=== PATIENT | male | born 1970 | race Caucasian/White ===

== ENCOUNTER → 2017-12-07 11:56 | Outpatient (CLI) | payer SELFPAY ==
[2017-12-07 12:10] VITALS: BP 134/87; PULSE 76; RESP 16; TEMP 36.9; O2SAT 97; BMI 26.7
--- NOTE | 2017-12-07 12:30 | HTC.HP_ITS ---
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 History of Present Illness: 47y.o.man with known diagnosis of Hemophilia B, comes in for follow up. Feels well, as not used any factor replacement in the last year, has no dental problems. Health History: Past Medical History (Last Reviewed 12/07/17 @ 12:09 by Zoie Mcmanus) Hemophilia B in male (Acute) Past Surgical History (Last Reviewed 12/07/17 @ 12:09 by Zoie Mcmanus) History of knee surgery (Acute) Family History (Last Reviewed 12/07/17 @ 12:09 by Zoie Mcmanus) Father Heart disease Grandmother Diabetes Allergies/Adverse Reactions: Allergy/AdvReac Type Severity Reaction Status Date / Time aspirin AdvReac Severe Other Verified 12/07/17 12:09 Risk Factors Social History Social History: No changes Smoking Status Never smoker Tobacco Risk Data: Tobacco Risk Smoking Status Never smoker Type of tobacco: Smokeless tobacco usage: Never Items/Day: Year started: Years used: Counseled to quit/cut down: Reason for no counseling performed: Reason for no pharmacotherapy: Tobacco use comments: Passive smoke exposure: No Substance Risk Drug use: No Caffeine use [drinks/day]: 1 Alcohol use: No Type of alcohol: Drinks per day: Has patient felt the need to cut down: Has the patient been annoyed by complaints: Has the patient felt guilty about drinking: Has the patient needed an eye intensive care anaesthetist in the mornings: Comments: Review of Systems Constitutional:: Denies: Fever, Sweats, Weight loss, Appetite change, Chills Cardiovascular:: Denies: Chest pain, Palpitations, Dyspnea on exertion, Orthopnea, PND, Shortness of breath Respiratory: Denies: Cough, Hemoptysis, Shortness of Breath, Wheezing Gastrointestinal:: Denies: Abdominal pain, Nausea, Vomiting, Diarrhea, Constipation, Hematochezia Genitourinary: Denies: Dysuria, Hematuria, 15, Flank pain Musculoskeletal:: Denies: Back pain, Myalgia, Arthralgia Skin: Denies: Rash, Skin Changes, Wounds Neurological:: Denies: Headache, Dizziness, Visual changes, Tinnitus, Hearing loss Psychiatric: Denies: Anxiety, Depression, Homicidal Ideations, Suicidal Ideations Vital Signs Height 5 ft 10 in Weight: 84.55 kg Weight in Pounds 186.4 lbs Pulse Ox 97 Temperature 98.4 F Pulse Rate 76 Respiratory Rate 16 Blood Pressure 134/87 Blood Pressure Position Sitting - Physical Exam General: Alert, Oriented x3, No apparent distress HEENT: Atraumatic, PERRLA, EOMI, Normocephalic Oropharynx:: Dry mucosa Neck:: Supple, Trachea midline. Negative for: JVD, bilateral Cardiac:: Regular rate, Regular rhythm, Normal S1, Normal S2. Negative for: Murmur Lungs: Clear to auscultation, Excusion symmetrical. Negative for: Rhonchi, Wheezes Abdomen:: Bowel sounds x 4, Soft, Non-tender, Non-distended. Negative for: Hepatosplenomegaly Extremities:: Negative for: Cyanosis, Edema Neurological: Neuro grossly intact Skin:: Negative for: Lesions, Rash, Petechiae, Ecchymosis Psychiatric:: Appropriate affect, Euthymic Lymphatics:: Negative for: Cervical lymphadenopathy, Supraclavicular lymphadenopathy, Axillary lymphadenopathy Assessment and Plan Hemophilia B, clinically stable. Plan is to continue expectant management with factor replacement as needed. RTC 1 year. Primary Care Provider: Riaz Lima Referring Provider: Stuart Blackwell MD
== END ==
PROVIDERS: Family Provider Family Medicine; PCP Family Medicine; Visit Provider Internal Medicine Medical Oncology
DX: D67 Hereditary factor IX deficiency (principal)

== ENCOUNTER → 2018-11-29 11:34 | Outpatient (CLI) | payer SELFPAY ==
[2018-11-29 11:44] VITALS: BP 149/86; PULSE 72; RESP 14; TEMP 36.4; O2SAT 100; BMI 26.4
--- NOTE | 2018-11-29 12:21 | WMO.HTC_ITS ---
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 History of Present Illness: 48y.o.man with Hemophilia B, comes for follow up. Feels well, gets low back pain on and off, resolves with Tylenol. Has not needed Factor replacement this year. Will see a Dentist later in the year. Health History: Past Medical History (Last Reviewed 11/29/18 @ 11:43 by Danielle Marcos) Hemophilia B in male (Acute) Past Surgical History (Last Reviewed 11/29/18 @ 11:43 by Danielle Marcos) History of knee surgery (Acute) Family History (Last Reviewed 11/29/18 @ 11:43 by Danielle Marcos) Father Heart disease Grandmother Diabetes Allergies/Adverse Reactions: Allergy/AdvReac Type Severity Reaction Status Date / Time aspirin AdvReac Severe Other Verified 11/29/18 11:43 Risk Factors Social History Smoking Status Never smoker Tobacco Risk Data: Tobacco Risk Smoking Status Never smoker Type of tobacco: Smokeless tobacco usage: Items/Day: Year started: Years used: Counseled to quit/cut down: Reason for no counseling performed: Reason for no pharmacotherapy: Tobacco use comments: Passive smoke exposure: Substance Risk Drug use: No Caffeine use [drinks/day]: Alcohol use: No Type of alcohol: Drinks per day: Has patient felt the need to cut down: Has the patient been annoyed by complaints: Has the patient felt guilty about drinking: Has the patient needed an eye level vial curvature gauger in the mornings: Comments: Review of Systems Constitutional:: Denies: Fever, Sweats, Weight loss, Appetite change, Chills Cardiovascular:: Denies: Chest pain, Palpitations, Dyspnea on exertion, Orthopnea, PND, Shortness of breath Respiratory: Denies: Cough, Hemoptysis, Shortness of Breath, Wheezing Gastrointestinal:: Denies: Abdominal pain, Nausea, Vomiting, Diarrhea, Constipation, Hematochezia Genitourinary: Denies: Dysuria, Hematuria, 15, Flank pain Musculoskeletal:: Denies: Back pain, Myalgia, Arthralgia Skin: Denies: Rash, Skin Changes, Wounds Neurological:: Denies: Headache, Dizziness, Visual changes, Tinnitus, Hearing loss Psychiatric: Denies: Anxiety, Depression, Homicidal Ideations, Suicidal Ideations Vital Signs Height 5 ft 10.5 in Weight: 84.822 kg Weight in Pounds 187.0 lbs Pulse Ox 100 Temperature 97.6 F Pulse Rate 72 Respiratory Rate 14 Blood Pressure 149/86 Blood Pressure Position Sitting - Physical Exam General: Alert, Oriented x3, No apparent distress HEENT: Atraumatic, PERRLA, EOMI, Normocephalic Oropharynx:: Dry mucosa Neck:: Supple, Trachea midline. Negative for: JVD, bilateral Cardiac:: Regular rate, Regular rhythm, Normal S1, Normal S2. Negative for: Murmur Lungs: Clear to auscultation, Excusion symmetrical. Negative for: Rhonchi, Wheezes Abdomen:: Bowel sounds x 4, Soft, Non-tender, Non-distended. Negative for: Hepatosplenomegaly Extremities:: Negative for: Cyanosis, Edema Neurological: Neuro grossly intact Skin:: Negative for: Lesions, Rash, Petechiae, Ecchymosis Psychiatric:: Appropriate affect, Euthymic Lymphatics:: Negative for: Cervical lymphadenopathy, Supraclavicular lymphadenopathy, Axillary lymphadenopathy Therapy ROM Screening - Subjective Subjective:: Pt states he is doing well- has some back pain but not sure what he did to it. - Objective Right shoulder flex:: 150 Left shoulder flex:: 160 Right shoulder extension:: 50 Left shoulder extension:: 50 Right elbox flex/ext:: 145/0 Left elbox flex/ext:: 145/0 Right elbow circumference:: 28cm Left elbow circumference:: 28.5cm Right forearm sup/pron:: WNL Left forearm sup/pron:: WNL Right knee flexion:: 115 Left knee flexion:: 115 Right knee circumference:: NT Left knee circumference:: NT Right ankle dorsiflexion:: 20 Left ankle dorsiflexion:: 20 Right ankle Plan-flex:: 45 Left ankle Plan-flex:: 45 Right ankle circumference:: NT boots on Left ankle circumference:: NT boots on Right hip flexion:: 90 Left hip flexion:: 90 Right hip extension:: 20 Left hip extension:: 20 - Assessment Assessment:: pt demo good ROM. moving slowly due to back pain- pt given verbal instructions on ROM ex to decrease back pain- pt demo understanding. Assessment and Plan Hemophilia B, clinically stable. Low back pain. Plan is to continue expectant management with factor replacement as needed. RTC 1 yr. Primary Care Provider: Riaz Lima Referring Provider:
== END ==
PROVIDERS: Family Provider Family Medicine; PCP Family Medicine; Visit Provider Internal Medicine Medical Oncology
DX: D67 Hereditary factor IX deficiency (principal)

== ENCOUNTER → 2019-11-28 11:51 | Outpatient (CLI) | payer SELFPAY ==
[2018-11-29 11:44] VITALS: BMI 26.4
--- NOTE | 2019-11-28 11:54 | HTC.HP4 ---
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 Subjective Date of Service:: 11/28/19 Chief Complaint: Hemophilia annual follow-up History of Present Illness: Mild hemophilia B, on-demand factor replacement, annual follow-up No factor use past year Health History: Past Medical History (Last Reviewed 11/29/18 @ 11:43 by Danielle Marcos) Hemophilia B in male (Acute) Past Surgical History (Last Reviewed 11/29/18 @ 11:43 by Danielle Marcos) History of knee surgery (Acute) Family History (Last Reviewed 11/29/18 @ 11:43 by Danielle Marcos) Father Heart disease Grandmother Diabetes Social History Smoking Status Never smoker Allergies/Adverse Reactions: Allergy/AdvReac Type Severity Reaction Status Date / Time aspirin AdvReac Severe Other Verified 11/28/19 11:59 Risk Factors Social History Smoking Status Never smoker Tobacco Risk Data: Tobacco Risk Smoking Status Never smoker Type of tobacco: Smokeless tobacco usage: Items/Day: Year started: Years used: Counseled to quit/cut down: Reason for no counseling performed: Reason for no pharmacotherapy: Tobacco use comments: Passive smoke exposure: Substance Risk Drug use: Caffeine use [drinks/day]: Alcohol use: Type of alcohol: Drinks per day: Has patient felt the need to cut down: Has the patient been annoyed by complaints: Has the patient felt guilty about drinking: Has the patient needed an eye electroneurodiagnostic technologist in the mornings: Comments: Review of Systems Constitutional:: Denies: Fever, Sweats, Weight loss, Appetite change, Chills Cardiovascular:: Denies: Chest pain, Palpitations, Dyspnea on exertion, Orthopnea, PND, Shortness of breath Respiratory: Denies: Cough, Hemoptysis, Shortness of Breath, Wheezing Gastrointestinal:: Denies: Abdominal pain, Nausea, Vomiting, Diarrhea, Constipation, Hematochezia Genitourinary: Denies: Dysuria, Hematuria, 15, Flank pain Musculoskeletal:: Denies: Back pain, Myalgia, Arthralgia Skin: Denies: Rash, Skin Changes, Wounds Neurological:: Denies: Headache, Dizziness, Visual changes, Tinnitus, Hearing loss Psychiatric: Denies: Anxiety, Depression, Homicidal Ideations, Suicidal Ideations - Physical Exam General: Alert, Oriented x3, No apparent distress HEENT: Atraumatic, PERRLA, EOMI, Normocephalic Oropharynx:: Dry mucosa Neck:: Supple, Trachea midline. Negative for: JVD, bilateral Cardiac:: Regular rate, Regular rhythm, Normal S1, Normal S2. Negative for: Murmur Lungs: Clear to auscultation, Excusion symmetrical. Negative for: Rhonchi, Wheezes Abdomen:: Soft, Non-tender, Non-distended. Negative for: Hepatosplenomegaly Extremities:: Negative for: Cyanosis, Edema Neurological: Neuro grossly intact Skin:: Negative for: Lesions, Rash, Petechiae, Ecchymosis Psychiatric:: Appropriate affect, Euthymic Lymphatics:: Negative for: Cervical lymphadenopathy, Supraclavicular lymphadenopathy, Axillary lymphadenopathy Assessment and Plan Hemophilia annual screening visit. Reviewed: - On-demand therapy. - Appropriate oral hygiene and regular dental care is essential. - An appropriate exercise regimen encouraged for maintenance of a healthy weight, cardiovascular risk reduction, and positive effects on strength, flexibility, balance, joint stabilization, bone density, socialization, and psychological health. - Medicines that increase the risk of bleeding should be avoided namely anticoagulants, aspirin, and other nonsteroidal anti-inflammatory drugs (NSAIDs). - Herbal remedies and [id number] supplements such as fish oil, may increase bleeding risk. - Pain can be treated with local measures (eg, cold packs, immobilization, splinting), and acetaminophen. - Cardiovascular disease prevention : focus on diet, exercise, smoking avoidance, and control of hypertension and hypercholesterolemia. - Planning for invasive procedures and elective surgery. Patient was also evaluated by the Hemophilia multidisciplinary team on site and Dr Aranda via video conferencing. Primary Care Provider: Riaz Lima MD Referring Provider:
[2019-11-28 12:02] VITALS: BP 126/82; PULSE 71; RESP 16; TEMP 36.6; O2SAT 97; BMI 27.5
== END ==
PROVIDERS: Family Provider Family Medicine; PCP Family Medicine; Visit Provider Internal Medicine Hematology & Oncology
DX: D67 Hereditary factor IX deficiency (principal)